=== PATIENT | male | born 1980 | race Two or more races ===

== ENCOUNTER 2017-06-13 12:05 | Emergency (ER) | payer SELFPAY ==
[2017-06-13 13:10] VITALS: BP 138/74
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
== END 2017-06-13 15:32 | disposition home or self-care (01) ==
LOC: ED 12:05
DX: S00.81XA Abrasion of other part of head, initial encounter (principal); S90.819A Abrasion, unspecified foot, initial encounter; S01.81XA Laceration without foreign body of other part of head, initial encounter; V49.9XXA Car occupant (driver) (passenger) injured in unspecified traffic accident, initial encounter; Y93.89 Activity, other specified; Y92.89 Other specified places as the place of occurrence of the external cause
CPT/HCPCS: 99281